=== PATIENT | female | born 1990 | race Caucasian/White ===

== ENCOUNTER 2019-10-24 17:41 | Emergency (ER) | payer SELFPAY ==
[~2019-10-24] VITALS: Ht 160 cm; Wt 88.0 kg
[2019-10-24] MEDS ORDERED: IBUPROFEN 600MG TABLET PO STA (18:53)
[2019-10-24 20:14] VITALS: BP 135/69
== END 2019-10-24 20:14 | disposition home or self-care (01) ==
LOC: ER 17:41
DX: M54.5 Low back pain (principal); M25.521 Pain in right elbow; Y04.0XXA Assault by unarmed brawl or fight, initial encounter; Y93.89 Activity, other specified; Y92.89 Other specified places as the place of occurrence of the external cause; Y99.8 Other external cause status
CPT/HCPCS: 72100; 73080; 81025; 99283; A4565